=== PATIENT | male | born 1985 | race Caucasian/White ===

== ENCOUNTER 2017-04-28 19:10 | Emergency (ER) | payer MEDICAID ==
[2017-04-28 19:23] VITALS: TEMP 99
--- NOTE | 2017-04-28 19:32 | EDPHY ---
H & P Stated Complaint: DOG bite to both hands Time Seen by Provider: 04/28/17 19:14 HPI/ROS: Chief Complaint: Dog bite HPI: 32-year-old male grabbed his girlfriend's dog is was running away from the house. The dog was started working grabbed that an lunged at him. He sustained lacerations to both of his hands. Patient is complaining of pain primarily in the right hand at the base of his little finger. He is up-to-date in his tetanus. ROS: ROS: 10 point Review of Systems is negative except as noted in the HPI. PMH: Denies Social History: No smoking, occasional alcohol, no recreational drug use Family History: non-contributory Physical Exam: Gen: Awake, Alert, No Distress Ext: no edema, patient has a superficial 3 mm laceration to his distal left middle finger over the fat pad of the distal phalanx. No deep tissue involvement. Laceration of the fat pad of the distal phalanx of the right thumb, 4 mm, no deep tissue involvement. In the hypo thenar region of the right hand at the base of the 5th finger there is a 2 cm deep laceration with exposed subcutaneous tissue. He has full flexion and extension strength of all digits including the 5th finger at both the MCP PIP and the IP joints. No tenderness along the flexor tendon sheath. Sensations intact laterally and medially. Capillary refills less than 3 sec bilateral extremities. Skin: no rash Neuro: CN II-XII intact, Sensation grossly intact, Strength 5/5 in bilateral upper and lower extremities - Personal History Current Tetanus Diphtheria and Acellular Pertussis (TDAP): Yes Tetanus Vaccine Date: 2015 - Medical/Surgical History Hx Asthma: No Hx Chronic Respiratory Disease: No Hx Diabetes: No Hx Cardiac Disease: No Hx Renal Disease: No Hx Cirrhosis: No Hx Alcoholism: No Hx HIV/AIDS: No Hx Splenectomy or Spleen Trauma: No Other PMH: tonsillectomy, hernia repair - Social History Smoking Status: Current every day smoker Constitutional: Initial Vital Signs Temperature (C) 37.2 C 04/28/17 19:21 Heart Rate 112 H 04/28/17 19:21 Respiratory Rate 20 04/28/17 19:21 Blood Pressure 134/89 H 04/28/17 19:21 O2 Sat (%) 97 04/28/17 19:21 O2 Delivery Mode Room Air Allergies/Adverse Reactions: No Known Allergies Allergy (Unverified 04/28/17 19:20) Home Medications: Medication Instructions Recorded Amoxicillin/Clavulanate Pot 875 mg PO BID #14 tab 04/28/17 [Augmentin 875 MG TAB (*)] Medical Decision Making - Diagnostics Imaging Results: Imaging Impressions Hand X-Ray 04/28/17 19:26 Impression: Soft tissue swelling. Imaging: I viewed and interpreted images myself Procedures: Procedure: Laceration repair. Verbal consent was obtained from the patient. The 2 cm laceration on the right- hand was anesthetized in the usual fashion. The wound was irrigated extensively , draped and explored to its base with a gloved finger. There were no deep structures involved. No tendon injury was identified. The wound was repaired with a very loose approximation with bulge ends open to allow drainage with 2, 5 -0 Ethilon simple interrupted sutures. The wound repair was not contaminated an uncomplicated. The procedure was performed by myself. ED Course/Re-evaluation: Patient with deep laceration to his hand from a dog bite. There are no tendon involvement on exploration or functionally. He has been given antibiotics. He had only a loose approximation for closure. He has been given very clear instructions regarding signs of infection. Will return for wound check and suture removal. - Data Points Medications Given: Discontinued Medications Amoxicillin/Clavulanate Potassium (Augmentin 875mg) 875 mg PO EDNOW ONE PRN Reason: Protocol Stop: 04/28/17 19:34 Last Admin: 04/28/17 19:46 Dose: 875 mg Departure - Departure Disposition: Home, Routine, Self-Care Clinical Impression: Dog bite, Laceration Condition: Good Instructions: Animal Bite (ED), Care For Your Stitches (ED), Laceration (ED) Additional Instructions: Please take her full course of antibiotics. Return to the emergency depart for increasing redness, increasing pain, discharge from the wound, fevers, chills, or any other concerns. Sutures need to be removed in 10 days. Prescriptions: Amoxicillin/Clavulanate Pot [Augmentin 875 MG TAB (*)] 875 mg PO BID #14 tab
[2017-04-28] MEDS ORDERED: AMOXICILLIN/CLAVULANATE POT 875/125 MG TAB PO ONE (19:33)
[2017-04-28 20:16] VITALS: BP 131/87; PULSE 102; RESP 18; O2SAT 96
== END 2017-04-28 20:13 | disposition home or self-care (01) ==
LOC: CED 19:10
PROC: 0HQFXZZ Repair Right Hand Skin, External Approach (ICD-10-PCS; principal; 2017-04-28)
DX: S61.411A Laceration without foreign body of right hand, initial encounter (principal); F17.200 Nicotine dependence, unspecified, uncomplicated; S61.213A Laceration without foreign body of left middle finger without damage to nail, initial encounter; W54.0XXA Bitten by dog, initial encounter
CPT/HCPCS: 73120-PO